=== PATIENT | female | born 1995 | race Caucasian/White ===

== ENCOUNTER 2016-11-20 19:50 | Emergency (ER) | payer MEDICARE | END 2016-11-20 22:25 | disposition home or self-care (01) | LOC: ER 19:50 | DX: J06.9 Acute upper respiratory infection, unspecified (principal); Z20.828 Contact with and (suspected) exposure to other viral communicable diseases; Z88.1 Allergy status to other antibiotic agents; Z88.2 Allergy status to sulfonamides | CPT/HCPCS: 81025; 87400; 99283 ==